=== PATIENT | male | born 1995 | race Caucasian/White ===

== ENCOUNTER 2017-04-14 15:20 | Emergency (ER) | payer OTHER ==
[~2017-04-14] VITALS: Ht 180.3 cm; Wt 67.9 kg
[2017-04-14 15:25] VITALS: Ht 180.3 cm; Wt 67.9 kg
--- NOTE | 2017-04-14 15:45 | EMERGENCY ROOM VISIT NOTE ---
History First contact with patient: 15:31 Chief Complaint: SORETHROAT Stated Complaint: LYMPH NODES ENLARGED,BUMPS ON BACK OF TONGUE History of Present Illness The patient is a 21 year old male who presents to the Emergency Room via private vehicle with complaints of "lymph nodes enlarged, bumps on back of tongue". The patient states that 4 days ago, his lips started with white dots in the corners, and then he notes that the tongue appeared to have a whitish layer. He states that he also noted that his anterior lymph nodes became enlarged, and he has been fatigued. He had chills. He denies any nausea, vomiting, abdominal pain, diarrhea, chest pain, shortness of breath. Review of Systems A complete 6-point Review of Systems was discussed with the patient, with pertinent positives and negatives listed in the History of Present Illness. All remaining Review of Systems questions can be considered negative unless otherwise specified. Past Medical/Surgical History No pertinent. Family History No pertinent. Social History Smoking Status: Former Smoker Patient is currently a student. He denies alcohol and tobacco use. Current/Historical Medications No Active Prescriptions or Reported Meds Physical Exam Vital Signs Date Time Temp Pulse Resp B/P (MAP) Pulse Ox O2 Delivery O2 Flow Rate FiO2 04/14/17 17:37 36.9 81 18 128/71 97 04/14/17 17:36 81 18 128/71 97 Room Air 04/14/17 15:27 97 Room Air 04/14/17 15:25 36.9 87 18 138/74 97 Room Air Physical Exam VITAL SIGNS - Vital signs and nursing notes were reviewed. Patient is afebrile , blood pressure 138/74, non-tachycardic and is saturating well on room air 97%. GENERAL -21-year-old male appearing his stated age who is in no acute distress. Communicates well with provider and answers questions appropriately. SKIN - Without rashes. There are small white dots noted on the corners of the lips. HEAD - NC/AT. EYES - PERRL with EOMI bilaterally. Sclera anicteric. EARS - No deformities of external structures noted on gross examination bilaterally. No pain elicited with palpation of the tragus bilaterally. External auditory canals without discharge or otorrhea. Tympanic membranes pearly yancey without retraction or bulging. No fluid or purulent material visualized behind the TM. Handle of malleus, umbo, cone of light, pars tensa/ flaccid all easily visualized. NOSE - Midline and without cyanosis. No epistaxis or purulent drainage noted. Septum midline without deviation or septal hematoma noted. MOUTH/OROPHARYNX - Without perioral cyanosis. Buccal mucosa pink and moist and without leukoplakia. Tongue midline with equal elevation of palate bilaterally. No tonsillar hypertrophy, erythema, or exudates noted. Fair dentition noted. There is raised papilla on the posterior aspect of the tongue. NECK - Neck with FROM. Supple to palpation. There is anterior cervical lymphadenopathy noted. No nuchal rigidity. LUNGS - Chest wall symmetric without accessory muscle use, intercostals retractions, or central cyanosis. Normal vesicular breath sounds CTA B/L. No wheezes, rales, or rhonchi appreciated. CARDIAC - RRR with S1/S2. No murmur, rubs, or gallops appreciated. ABDOMEN - Abdominal contour without pulsations or visible masses. BS normoactive all four quadrants. No tenderness, palpable masses, hepatosplenomegaly, or ascites noted. Medical Decision & Procedures Laboratory Results 04/14/17 15:50 Red Blood Count 6.22, Mean Corpuscular Volume 73.6, Mean Corpuscular Hemoglobin 23.3, Mean Corpuscular Hemoglobin Concent 31.7, Mean Platelet Volume 9.2, Neutrophils (%) (Auto) 55.2, Lymphocytes (%) (Auto) 33.2, Monocytes (%) (Auto) 11.2, Eosinophils (%) (Auto) 0.2, Basophils (%) (Auto) 0.2, Neutrophils # (Auto ) 2.46, Lymphocytes # (Auto) 1.48, Monocytes # (Auto) 0.50, Eosinophils # (Auto ) 0.01, Basophils # (Auto) 0.01 04/14/17 15:50 Test 04/14/17 15:50 White Blood Count 4.46 K/uL (4.8-10.8) Red Blood Count 6.22 M/uL (4.7-6.1) Hemoglobin 14.5 g/dL (14.0-18.0) Hematocrit 45.8 % (42-52) Mean Corpuscular Volume 73.6 fL (80-100) Mean Corpuscular Hemoglobin 23.3 pg (25-34) Mean Corpuscular Hemoglobin Concent 31.7 g/dl (32-36) Platelet Count 213 K/uL (130-400) Mean Platelet Volume 9.2 fL (7.4-10.4) Neutrophils (%) (Auto) 55.2 % Lymphocytes (%) (Auto) 33.2 % Monocytes (%) (Auto) 11.2 % Eosinophils (%) (Auto) 0.2 % Basophils (%) (Auto) 0.2 % Neutrophils # (Auto) 2.46 K/uL (1.4-6.5) Lymphocytes # (Auto) 1.48 K/uL (1.2-3.4) Monocytes # (Auto) 0.50 K/uL (0.11-0.59) Eosinophils # (Auto) 0.01 K/uL (0-0.5) Basophils # (Auto) 0.01 K/uL (0-0.2) RDW Standard Deviation 36.5 fL (36.4-46.3) RDW Coefficient of Variation 13.8 % (11.5-14.5) Immature Granulocyte % (Auto) 0.0 % Immature Granulocyte # (Auto) 0.00 K/uL (0.00-0.02) Neutrophils % (Manual) 53.9 % Lymphocytes % (Manual) 18.3 % Monocytes % (Manual) 7.0 % Metamyelocytes % 1.7 % Neutrophils # (Manual) 2.40 K/uL (1.4-6.5) Total Absolute Neutrophils 2.40 K/uL (1.4-6.5) Lymphocytes # (Manual) 0.82 K/uL (1.2-3.4) Total Absolute Lymphocytes 1.67 K/uL (1.2-3.4) Monocytes # (Manual) 0.31 K/uL (0.11-0.59) Metamyelocytes # 0.08 K/uL (0-0) Percent Large Granular Lymphocytes 19.1 % Absolute Large Granular Lymphocytes 0.85 K/uL Red Blood Cell Morphology Unremarkable Anion Gap 4.0 mmol/L (3-11) Est Creatinine Clear Calc Drug Dose 102.0 ml/min Estimated GFR () 110.6 Estimated GFR (Non- 95.5 BUN/Creatinine Ratio 11.1 (10-20) Calcium Level 9.2 mg/dl (8.5-10.1) Total Bilirubin 1.0 mg/dl (0.2-1) Aspartate Amino Transf (AST/SGOT) 12 U/L (15-37) Alanine Aminotransferase (ALT/SGPT) 32 U/L (12-78) Alkaline Phosphatase 84 U/L (45-117) Total Protein 8.1 gm/dl (6.4-8.2) Albumin 4.8 gm/dl (3.4-5.0) Globulin 3.3 gm/dl (2.5-4.0) Albumin/Globulin Ratio 1.5 (0.9-2) Monoscreen NEG (NEG) Medications Administered Medications (Trade) Dose Ordered Sig/Reba Route Start Time Stop Time Status Last Admin Dose Admin Sodium Chloride 1,000 ml @ 999 mls/hr Q1H1M STAT IV 04/14/17 15:59 04/14/17 16:59 DC 04/14/17 16:03 999 MLS/HR Medical Decision Patient was seen and evaluated as above. After obtaining a thorough history and physical examination IV access was initiated, and the above workup was performed. Rapid strep was found to be negative. [place] was also negative. He is nontoxic in appearance, and has stable vital signs. He is afebrile. He was hydrated with 1 L of normal saline, in the event that his fatigue may be secondary to dehydration. CBC reveals white blood cell count low at 4.46, red blood cell count high at 6.22. There are also metamyelocytes. He was educated upon this finding. CMP reveals creatinine at 1.1, AST low at 12. No evidence of failure. At this time the patient appears stable for outpatient management. He is to follow-up with [facility]. I suspect is likely experiencing a mild viral process. Regardless, he was felt stable for outpatient management. He was educated upon worrisome symptoms which to return , had questions, and was discharged home in good condition. Throat culture pending. Patient case was discussed with the attending physician. In the evaluation and treatment of this patient the following differential diagnoses were entertained: Strep pharyngitis, viral pharyngitis, [id number]- mouth disease, underlying malignancy, among others. He is to follow-up with [facility]. The patient was personally cold by myself after departure to ensure that he felt comfortable contact [facility] , as he was not given the phone number. He stated that felt comfortable doing such. Impression Primary Impression: Sore throat Departure Information Dispostion Home / Self-Care Condition GOOD Prescriptions No Active Prescriptions or Reported Meds Referrals No Doctor, Assigned (PCP) Patient Instructions My [facility] Additional Instructions You were seen in the emergency department for your sore throat. The results of your rapid strep screen were found to be NEGATIVE. You will be contacted in 48- 72 hrs if the results of your culture are found to be positive and any change in antibiotics is necessary. For pain and fever control, you can use the following [id number] medicines (if >12 yo): - Regular strength (325mg/tab) Tylenol (acetaminophen) 2 tabs every 4-6 hours as needed. Do not exceed 12 tablets in a 24 hour period. Avoid taking more than 3 grams (3000 mg) of Tylenol per day. This includes any other sources of acetaminophen you may take on a regular basis. - Regular strength (200 mg/tab) Advil (ibuprofen) 1-2 tabs every 4-6 hours as needed. Do not exceed a dose of 3200 mg per day. - For best results, alternate dosing of Tylenol and Advil. In addition to your prescribed medications, you can also use the following home remedies: - Warm salt-water gargles 3 times per day can soothe your throat and help to fight infection. - Warm tea with honey can soothe your throat. Return to the emergency department if your symptoms persist or worsen over the next 2-3 days despite treatment course outlined above. Return to the emergency department if you develop the following symptoms of: inability to swallow solids , liquids, or drool; excessive wheezing or inability to catch your breath; or intractable fever or pain. Follow up with your primary care provider in 2-3 days from today's emergency department visit. Please also follow-up regarding the metamyelocyte elevation in the blood and your decreased white blood cell count. Please return to emergency department with any/concerning symptoms.
[2017-04-14] MEDS ORDERED: SODIUM CHLORIDE 0.9% 1000ML 1,000 ML IV STA (15:59)
[2017-04-14 16:04] LABS: BASO % 0.2 %; BASO ABS # 0.01 K/uL (0-0.2); EOS % 0.2 %; HEMATOCRIT 45.8 % (42-52); LYMPH % 33.2 %; LYMPH ABS # 1.48 K/uL (1.2-3.4); MEAN CELL VOLUME 73.6 fL (80-100); MEAN CORPUSCULAR HEMOGLOBIN 23.3 pg (25-34); MEAN CORPUSCULAR HGB CONC 31.7 g/dl (32-36); MEAN PLATELET VOLUME 9.2 fL (7.4-10.4); MONO % 11.2 %; NEUT % 55.2 %; PLATELET COUNT 213 K/uL (130-400); RED BLOOD COUNT 6.22 M/uL (4.7-6.1); WHITE BLOOD COUNT 4.46 K/uL (4.8-10.8)
[2017-04-14 16:33] LABS: BUN/CREATININE RATIO 11.1 (10-20); CALCIUM 9.2 mg/dl (8.5-10.1); CREATININE 1.1 mg/dl (0.60-1.40); POTASSIUM 4.1 mmol/L (3.5-5.1)
[2017-04-14 16:36] LABS: ALB/GLOB RATIO 1.5 (0.9-2)
[2017-04-14 16:51] LABS: COMPLETE YES; LARGE GRANULAR LYMPH ABSOLUTE 0.85 K/uL; LARGE GRANULAR LYMPHOCYTE % 19.1 %; LYMPH ABS # 0.82 K/uL (1.2-3.4); LYMPHOCYTE % 18.3 %; META ABS # 0.08 K/uL (0-0); METAMYELOCYTE % 1.7 %; NEUTROPHILS % 53.9 %
[2017-04-14 17:37] VITALS: BP 128/71; PULSE 81; TEMP 36.9; O2SAT 97
== END 2017-04-14 17:38 | disposition home or self-care (01) ==
LOC: C.EDB 15:24 → C.EDD 17:38
DX: J02.9 Acute pharyngitis, unspecified (principal); Z87.891 Personal history of nicotine dependence